=== PATIENT | female | born 1990 | race African-American/Black ===

== ENCOUNTER 2016-09-21 10:27 | Emergency (ER) | payer OTHER ==
[~2016-09-21] VITALS: Ht 172.7 cm; Wt 90.7 kg
[~2016-09-21 10:27] MED LIST: BACTRIM DS TAB1 EACH PO; BENADRYL ALLERG25 MG PO; BENADRYL ITCH28.3 G1 TP; DIFLUCAN200 MG PO; FLAGYL500 MG PO; IBUPROFEN 600600 M1 PO; KEFLEX500 MG PO; MOTRIN IB200 M1 PO; MULTIVITAMINS1 EAC7 PO; NOHOMEMEDICATIONS; NORCO 5-325 TA1 EACH PO; ONDANSETRON HCL4 M2 PO; PEPCID40 MG PO; PREDNISONE 10 M10 MG PO; RINGWORM14.2 GM TP; TRIAMCINOLONE A15 G2 TP; [UNRECOGNIZED DRUG - REMARK]
[2016-09-21 10:29] VITALS: BP 116/81
[2016-09-21] MEDS ORDERED: PHENTERMINE H37.5 M1 PO (10:31)
[2016-09-21] MEDS ORDERED: MOBIC15 MG PO (12:12)
== END 2016-09-21 12:19 | disposition home or self-care (01) ==
LOC: ER 10:27
DX: S39.012A Strain of muscle, fascia and tendon of lower back, initial encounter (principal); F10.99 Alcohol use, unspecified with unspecified alcohol-induced disorder; V49.9XXA Car occupant (driver) (passenger) injured in unspecified traffic accident, initial encounter; Y93.89 Activity, other specified; Y92.89 Other specified places as the place of occurrence of the external cause; Y99.8 Other external cause status

== ENCOUNTER 2017-02-07 02:43 | Emergency (ER) | payer BC ==
[~2017-02-07] VITALS: Ht 172.7 cm; Wt 90.7 kg
[~2017-02-07 02:43] MED LIST changes: +MOBIC15 MG PO; +PHENTERMINE H37.5 M1 PO
[2017-02-07 02:50] VITALS: BP 122/70
[2017-02-07 02:56] LABS: URINE BILIRUBIN NEGATIVE (Negative); URINE BLOOD 2+ (Negative); URINE COLOR YELLOW; URINE GLUCOSE-RANDOM* NEGATIVE (Negative); URINE KETONES NEGATIVE (Negative); URINE LEUKOCYTES-REFLEX NEGATIVE (Negative); URINE PROTEIN (DIPSTICK) NEGATIVE (Negative); URINE UROBILINOGEN 0.2 E.U./dl (0.2-1.0)
[2017-02-07 03:15] LABS: SQUAMOUS 0-3 Few /LPF (0-3)
[2017-02-07 03:16] LABS: CASTS None Seen /LPF (None Seen); CRYSTALS None Seen /LPF (None Seen); URINE RBC 3-10 Few /HPF (0-2); URINE WBC-REFLEX 0-5 Rare /HPF (0-5)
[2017-02-07] MEDS ORDERED: NAPROSYN500 MG PO (03:17)
[2017-02-07] MEDS ORDERED: NORFLEX100 MG PO (03:17)
[2017-02-07] MEDS ORDERED: NORCO 5-325 TA1 EACH PO (03:17)
== END 2017-02-07 03:33 | disposition home or self-care (01) ==
LOC: ER 02:43
PROVIDERS: Emergency Medicine
DX: S39.012A Strain of muscle, fascia and tendon of lower back, initial encounter (principal); F10.99 Alcohol use, unspecified with unspecified alcohol-induced disorder; X58.XXXA Exposure to other specified factors, initial encounter; Y93.89 Activity, other specified; Y92.89 Other specified places as the place of occurrence of the external cause; Y99.8 Other external cause status

== ENCOUNTER 2017-09-05 10:33 | Emergency (ER) | payer OTHER ==
[~2017-09-05] VITALS: Ht 172.7 cm; Wt 89.8 kg
[~2017-09-05 10:33] MED LIST changes: +NAPROSYN500 MG PO; +NORFLEX100 MG PO
[2017-09-05 11:24] LABS: URINE BLOOD TRACE (Negative); URINE CLARITY CLEAR; URINE COLOR YELLOW; URINE GLUCOSE-RANDOM* NEGATIVE (Negative); URINE KETONES TRACE (Negative); URINE LEUKOCYTES NEGATIVE (Negative); URINE NITRITE NEGATIVE (Negative); URINE PROTEIN (DIPSTICK) TRACE (Negative); URINE SPECIFIC GRAVITY >= 1.030 (1.005-1.035)
[2017-09-05 11:26] LABS: URINE BILIRUBIN NEGATIVE (Negative)
[2017-09-05 11:54] LABS: HEMATOCRIT 34.6 % (37.0-47.0); HEMOGLOBIN 11.6 gm/dL (12.0-15.0); MCH 30.5 pg (26.0-34.0); MCHC 33.7 g/dL (28.0-37.0); MCV 90.6 fL (80.0-100.0); PLATELET COUNT 328 thou/uL (150-400); RBC 3.81 mil/uL (4.20-5.00); RDW 13.5 % (10.5-14.5); WBC 4.1 thou/uL (4.0-11.0)
[2017-09-05 12:01] LABS: ANION GAP 5 mmol/L (7-16); BUN 10 mg/dL (7-18); CALCIUM 8.9 mg/dL (8.5-10.1); CHLORIDE 105 mmol/L (98-107); CO2 28 mmol/L (21-32); CREATININE 0.8 mg/dL (0.6-1.0); GLUCOSE 115 mg/dL (74-106); POTASSIUM 3.3 mmol/L (3.5-5.1); SODIUM 138 mmol/L (136-145)
[2017-09-05 12:07] LABS: ALBUMIN 3.3 g/dL (3.4-5.0); DIRECT BILIRUBIN < 0.1 mg/dL (<0.1-0.3); SGOT 20 U/L (15-37); SGPT 24 U/L (30-65); TOTAL BILIRUBIN 0.4 mg/dL (<0.1-1.0); TOTAL PROTEIN 7.3 g/dL (6.4-8.2)
[2017-09-05] MEDS ORDERED: PHENERGAN 25 MG25 M1 PO (12:15)
[2017-09-05 12:30] LABS: ABSOLUTE NEUTROPHILS 2.6 thou/uL (1.4-8.2)
== END 2017-09-05 12:43 | disposition home or self-care (01) ==
LOC: ER 10:33
PROVIDERS: Emergency Medicine
DX: R51 Headache (principal)

== ENCOUNTER → 2017-09-07 | Outpatient (CLI) | payer OTHER ==
[~2017-09-07] MED LIST changes: +PHENERGAN 25 MG25 M1 PO
== END ==
LOC: MRI 14:13
DX: R51 Headache (principal)